=== PATIENT | male | born 1995 | race Two or more races ===

== ENCOUNTER → 2025-05-04 | Emergency (ER) | payer OTHER ==
[~2025-05-04] VITALS: Ht 190.5 cm; Wt 97.5 kg
[2025-05-04 17:54] LABS: BASO % 0.4 % (0.1-1.2); EOS # 0.06 (0.04-0.54); EOS % 0.5 % (0.7-7.0); LYMPH # 1.66 (1.18-3.74); LYMPH % 13.2 % (19.3-53.1); MEAN PLATELET VOLUME 9.60 fl (9.4-12.4); MONO # 0.52 (0.24-0.82); MONO % 4.1 % (4.7-12.5); NEUT # 10.24 (1.56-6.13); NEUT % 81.6 % (34.0-71.1); RED CELL DISTRIBUTION WIDTH 12.6 % (11.6-14.4)
[2025-05-04 18:13] LABS: URINE APPEARANCE Clear; URINE BILIRRUBIN Negative (NEGATIVE); URINE BLOOD Negative; URINE COLOR Yellow; URINE GLUCOSE Negative (NEGATIVE); URINE KETONE Negative (NEGATIVE); URINE LEUKOCYTE Negative; URINE NITRATE Negative; URINE PROTEIN Negative (NEGATIVE); URINE UROBILINOGEN 0.2 E.U./dl
[2025-05-04 18:17] LABS: URINE WBC 2.7 uL (0.0-23.2)
[2025-05-04 18:19] LABS: URINE BACTERIA 3.4 uL (0.0-1933); URINE CAST 0.00 uL (0.0-1.40); URINE EPITHELIAL CELLS 0.0 uL (0.0-38.8); URINE RBC 1.6 uL (0.0-20.8)
[2025-05-04 18:32] LABS: COVID-19 AG NEGATIVE (NEGATIVE)
[2025-05-04 18:45] LABS: ALT/SGPT 31.0 U/L (12-78); AST/SGOT 37.0 U/L (15-37); BILIRUBIN TOTAL 0.47 mg/dL (0.3-1.2); BUN CREA RATIO 16.0 (7.0-25.0); CREATININE SERUM 1.26 mg/dL (0.70-1.30); GFR 66.75; GLOBULINA 3.7 G/DL (2.4-3.5); GLUCOSE FASTING 104.0 mg/dL (65-100); OSMOLALITY SERUM 284.0 MOSM/KG (275-295)
== END | disposition left against medical advice (07) ==
LOC: ER 14:44
PROVIDERS: General Practice
DX: G40.89 Other seizures (principal)